=== PATIENT | male | born 1985 | race Caucasian/White ===

== ENCOUNTER 2016-12-14 17:38 | Emergency (ER) | payer SELFPAY ==
[~2016-12-14] VITALS: Ht 177.8 cm; Wt 75.0 kg
[2016-12-14 17:42] VITALS: BP 148/100; PULSE 99; RESP 16; O2SAT 99
--- NOTE | 2016-12-14 18:13 | ED.REPORT ---
HPI-Psychiatric Illness Date of Service Dec 14, 2016 ED Provider: Wilian Burgos MD Pt is a 31 y/o male w/ a hx of depression, meth abuse, presenting to the ED due to SI. The patient states "combined thoughts about the past and present" brought him here. This has been going on since he was 16 years old. He came to the ED today because he is afraid of because of suicidal thoughts. These suicidal thoughts have been occurring intermittently for a long time. He does not know if he has tried to commit suicide in the past. He has a vague plan for suicide of jumping off a bridge. He has been admitted psychiatrically before which occurred when he was 17 years old. The patient has been living with his sister who dropped him off here today. The patient uses meth and the last time he used was earlier today. He also uses heroin and alcohol but did not drink any alcohol today. The patient states he has been admitted to [facility] in the past. He has a history of depression and does not wish to tell any more of his history at this time. He denies taking any psychiatric medications. Nursing notes indicate the patient's friend recently committed suicide. Nursing Notes Stated Complaint: TROUBLE BREATHING/EMOTIONAL PROBLEM Chief Complaint: Psychiatric Complaint Nursing Notes Reviewed: Yes Allergies: Coded Allergies: No Known Allergies (Unverified , 12/14/16) General Time Seen by MD: 18:10 Chief Complaint Suicidal attempt Hx Obtained From: Patient Arrived By: Walk-in Onset Occurred: Onset unknown Symptom Duration: Since onset Progression Since Onset: Intermittent Severity: Current: No pain currently Severity: Maximum: No pain Recent Healthcare: Previous diagnosis Similar Sx Previous: Yes Risk-Psychiatric Illness Suicide Risk Stratification RF Statements: Risk factors reviewed Past Medical History Past Medical History Meth abuse Depression Past Surgical History None reported Smoking History Unknown if Ever Smoker Social History +alcohol, unknown amount +heroin Drug Use: Meth Ambulatory Status Independent Review of Systems Constitutional: Denies: Chills, Fever Respiratory: Reports: Shortness of breath Cardiovascular: Denies: Chest pain GI: Denies: Abdominal pain Psychiatric: Reports: Anxiety, Depression, Stress, Suicidal ideation Complete sys rev & neg: except as marked. Physical Exam Initial Vital Signs Vital Signs (First) Date Time Temp Pulse Resp B/P Pulse Ox O2 Delivery O2 Flow Rate FiO2 12/14/16 17:42 36.9 99 16 148/100 99 Room Air Initial VS: Reviewed, Vital signs normal Head / Eyes: Atraumatic, Normocephalic, PERRL ENT: Mucous membranes moist, Conjunctiva normal, No scleral icterus Neck: Supple, Full range of motion Respiratory: Breath sounds normal, Clear to auscultation, No respiratory distress Cardiovascular: Regular rate & rhythm, Heart sounds normal, Intact distal pulses Abdomen / GI: Soft, Non-tender Extremities: Vascular intact, Neuro intact, No swelling Skin: Warm, Dry, No cyanosis General/Constitutional: Awake, Alert, No acute distress, Cooperative, Not toxic appearing Neurologic: Oriented X3, Speech NL, No motor deficits, Memory NL Psychiatric: Not homicidal, No hallucinations Abnormal Mood/Affect: Positive: Flat affect Abnormal Thinking / Perception: Positive: Suicidal, with plan (vague) Interpretation & Diagnostics Lab Results Interpretation Result Diagram: 12/14/16191112/14/161911 Test 12/14/16 19:12 12/14/16 21:14 12/14/16 22:47 White Blood Count 8.9th/mm3 (3.8-10.1) Red Blood Count 5.76mil/mm3 (4.40-5.80) Hemoglobin 16.2g/dL (13.8-17.2) Hematocrit 46.7% (41.0-50.0) Mean Corpuscular Volume 81.1fL (81-100) Mean Corpuscular Hemoglobin 28.1pg (27.0-35.0) Mean Corpuscular Hemoglobin Concent 34.7% (32.0-37.0) Red Cell Distribution Width 12.7% (12.3-15.4) Platelet Count 294bil/L (150-400) Neutrophils (%) (Auto) 58.6% (40-74) Lymphocytes (%) (Auto) 31.6% (14-46) Monocytes (%) (Auto) 8.0% (4-12) Eosinophils (%) (Auto) 1.5% (0-5) Basophils (%) (Auto) 0.2% (0-3) Sodium Level 137mEq/L (134-144) Potassium Level 3.6mEq/L (3.5-5.2) Chloride Level 98mEq/L (97-108) Carbon Dioxide Level 19mmol/L (18-29) Blood Urea Nitrogen 13mg/dL (6-20) Creatinine 0.98mg/dL (0.76-1.27) Estimat Glomerular Filtration Rate 95mL/min (>59) Glucose Level 91mg/dL (60-99) Calcium Level 9.9mg/dL (8.5-10.1) Total Bilirubin 0.8mg/dL (0.0-1.2) Aspartate Amino Transf (AST/SGOT) 17U/L (0-50) Alanine Aminotransferase (ALT/SGPT) 12U/L (0-44) Alkaline Phosphatase 74U/L (25-150) Total Protein 8.1g/dL (6.4-8.4) Albumin 4.6g/dL (3.4-5.0) Thyroid Stimulating Hormone (TSH) 1.280uIU/mL (0.450-4.500) Hold Berg Top Tube Received (Received) Hold Urine Received (Received) X-Ray Chest Interpretation Chest Xray Interpretation: IMPRESSION: 1. No acute cardiopulmonary disease. Dictated by: Shon Parisi M.D. on 12/14/2016 at 18:42 Approved by: Shon Parisi M.D. on 12/14/2016 at 18:43 View: Portable, AP & lat Interpretation / Wet Read by: Interpret - Radiologist Re-Eval/Medical Decision Med Decision/Clinical Course In summary, the patient is a 31-year-old male with a history of polysubstance abuse and recent methamphetamine abuse who presents to the emergency department with an extremely vague history of stating that he feels suicidal. He is afebrile with stable vital signs, calm and no apparent distress. Examination as above. Laboratory studies notable as below: Breathalyzer: 0 Urine drug screen positive for: meth, THC CBC: unremarkable CMP: unremarkable TSH within normal limits Patient presents with suicidal ideation in the setting of polysubstance abuse. That being said, he is relatively calm and does not appear particularly intoxicated. He desires help from a psychiatric perspective and is here on a voluntary basis. The patient will remain in the emergency department overnight with plan for evaluation by social work in the morning. He was signed out to the oncoming physician in stable condition. At this time, I see no evidence of acute medical etiology of his presentation other than his substance abuse. Counseled Regarding: Diagnosis, Lab results Discharge & Departure Impression: Primary Impression: Methamphetamine abuse Additional Impressions: Suicidal ideation Acute situational disturbance Discharge Condition All VS Reviewed: Yes Condition: Stable Referrals: Jesus Beal MD (PCP) Scribe Attestation Portions of this note were transcribed by Roman Yusuf. I, Dr. Burgos, personally performed the history, physical exam and medical decision-making; I reviewed and confirmed the accuracy of the information in the transcribed note. Signed by Della Mercado, 12/14/16 - 1830 copies to: Jesus Beal MD, Beck O MD Dec 14, 2016 18:13 ROMAN YUSUF Dec 14, 2016 18:14
--- NOTE | 2016-12-14 18:44 | DRSVH ---
PROCEDURE: X-RAY CHEST, TWO VIEWS ([id number]) INDICATIONS: SHORTNESS OF BREATH TECHNIQUE: 2 views of the chest were acquired. COMPARISON: None. FINDINGS: Surgical changes and devices: None. Lungs and pleura: No pleural effusions or pneumothorax. Lungs are clear. Mediastinum: Mediastinal contours are normal. Heart size is normal. Bones and chest wall: No suspicious bony abnormalities. Soft tissues appear unremarkable. IMPRESSION: 1. No acute cardiopulmonary disease. Dictated by: Shon Parisi M.D. on 12/14/2016 at 18:42 Approved by: Shon Parisi M.D. on 12/14/2016 at 18:43
[2016-12-14 19:18] LABS: BASOPHILS % (AUTO) 0.2 % (0-3); EOSINOPHILS % (AUTO) 1.5 % (0-5); Mean Corpuscular Hemoglobin 28.1 pg (27.0-35.0); Mean Corpuscular Volume 81.1 fL (81-100); NEUTROPHILS % (AUTO) 58.6 % (40-74); Platelet Count 294 bil/L (150-400)
[2016-12-14 23:37] VITALS: BP 125/77; PULSE 70; RESP 16; O2SAT 100
[2016-12-15 03:58] VITALS: BP 108/61; PULSE 61; RESP 16; O2SAT 95
[2016-12-15 06:14] VITALS: BP 119/75; PULSE 62; RESP 16; O2SAT 99
[2016-12-15 13:04] VITALS: BP 112/77; PULSE 84; RESP 12; O2SAT 99
[2016-12-15 15:06] VITALS: BP_SYST 127; PULSE 72; RESP 17; O2SAT 98
== END 2016-12-15 15:07 | disposition home or self-care (01) ==
LOC: SED 17:38
DX: F15.10 Other stimulant abuse, uncomplicated (principal); R45.851 Suicidal ideations; F43.0 Acute stress reaction; F32.9 Major depressive disorder, single episode, unspecified